=== PATIENT | female | born 1990 | race Caucasian/White ===

== ENCOUNTER 2017-03-17 23:11 | Emergency (ER) | payer OTHER ==
[~2017-03-17] VITALS: Ht 172.7 cm; Wt 108.9 kg
[2017-03-18] MEDS ORDERED: CRUTCH1 EACH MISC (00:31)
[2017-03-18] MEDS ORDERED: NORCO 5-325 TA1 EACH PO (00:31)
== END 2017-03-18 01:22 | disposition home or self-care (01) ==
LOC: ED 23:11
DX: S93.401A Sprain of unspecified ligament of right ankle, initial encounter (principal); J45.909 Unspecified asthma, uncomplicated; X50.1XXA Overexertion from prolonged static or awkward postures, initial encounter; Z88.8 Allergy status to other drugs, medicaments and biological substances
CPT/HCPCS: 73610; 99283

== ENCOUNTER 2021-06-20 00:02 | Inpatient (IN) | payer OTHER ==
[~2021-06-20 00:02] MED LIST: CRUTCH1 EACH MISC; NORCO 5-325 TA1 EACH PO
--- NOTE | 2021-06-20 12:56 | PR ---
[facility] [address] [place], [place] [address] Signed Progress Notes IP Datetime Report Generated by CPN: 06/20/2021 12:56 PROGRESS NOTES: [id number] Impression: Normal Progression of Labor Procedures: Artificial ROM; Intrauterine Pressure Catheter; Scalp Electrode; Sterile Vag Exam Plan: Continue Present Management Informed Consent Obtain: Vaginal Delivery VITAL SIGNS: [id number] Vital Signs: Reviewed; Within Normal Limits EXAM: [id number] Dilatation: 4.5 Effacement: 70 Station: -3 Contractions: Irregular and mild MEMBRANES: [id number] Comments: Pt seen and examined. Doing well. Pitocin was started per protocol to encourage descent and on exam head well applied. Discussed AROM and internal monitors and pt gives verbal consent. AROM easily performed for large amount of clear fluid. IUPC and FSE placed w/out difficulty. Adequate pelvis on exam and vertex well applied. Will continue low dose pit per protocol. Epidural on demand. Reviewed anticipated course of L_D. All questions answered. FETUS A: [id number] FHR Baseline: 120 Variability: Moderate 6-25bpm Accelerations: 15X15 Decelerations: None FHR Category: Category I Comments on Fetus A: No evidence of metabolic acidosis FETUS B: [id number] Signing Physician: Cristal Jordan DO Copies: ~ *Electronically Signed* 06/20/21 5622 CRISTAL JORDAN DO PATIENT NAME: ORTEGA DE LOS SANTOS PROGRESS NOTE DATE OF : 88 PHYSICIAN: CRISTAL JORDAN DO RPT #: [id number] REPORT IS CONFIDENTIAL AND NOT TO BE RELEASED WITHOUT AUTHORIZATION
--- NOTE | 2021-06-20 17:58 | PR ---
[facility] [address] [place], [place] [address] Signed Progress Notes IP Datetime Report Generated by CPN: 06/20/2021 17:58 PROGRESS NOTES: [id number] Impression: Reassuring Heart Rate Other Impressions: Slow progress; inadequate CTXs Procedures: Artificial ROM; Intrauterine Pressure Catheter; Scalp Electrode; Sterile Vag Exam Plan: Continue Present Management; Augmentation Informed Consent Obtain: Vaginal Delivery VITAL SIGNS: [id number] Vital Signs: Reviewed; Within Normal Limits EXAM: [id number] Dilatation: 5.0 Effacement: 70 Station: -3 Contractions: Irregular and mild MEMBRANES: [id number] Comments: Pt seen and examined. Doing well. Comfortable w/ epidural. Has had some symptomatic hypotensive episodes w/ N/V. Orders from anesthesia for IV fluids and ephedrine. See RN charting for details. Reviewed continued hypotension and discussed management. Excellent urine output, minimal symptoms, and Cat 1 tracing. Discussed risks of overtreating including hypervolemia. Pt reassurred. Will continue pitocin per protocol. Discussed minimal cervical change, station and EFW, and indications for if needed. Pt understands and agrees. FETUS A: [id number] FHR Baseline: 120 Variability: Moderate 6-25bpm Accelerations: 15X15 Decelerations: None FHR Category: Category I Comments on Fetus A: No evidence of metabolic acidosis FETUS B: [id number] Signing Physician: Cristal Jordan DO Copies: ~ *Electronically Signed* 06/20/21 7466 CRISTAL JORDAN DO PATIENT NAME: ORTEGA DE LOS SANTOS PROGRESS NOTE DATE OF : 88 PHYSICIAN: CRISTAL JORDAN #: [id number] REPORT IS CONFIDENTIAL AND NOT TO BE RELEASED WITHOUT AUTHORIZATION
--- NOTE | 2021-06-20 20:16 | PR ---
[facility] [address] [place], [place] [address] Signed Progress Notes IP Datetime Report Generated by CPN: 06/20/2021 20:16 PROGRESS NOTES: [id number] Impression: Normal Progression of Labor; Reassuring Heart Rate Other Impressions: Slow progress; inadequate CTXs Procedures: Sterile Vag Exam Plan: Continue Present Management; Anticipate Vaginal Delivery Informed Consent Obtain: Vaginal Delivery VITAL SIGNS: [id number] Vital Signs: Reviewed; Within Normal Limits EXAM: [id number] Dilatation: 5.0 Effacement: 70 Station: -3 Contractions: Irregular and mild MEMBRANES: [id number] Comments: Pt seen and examined. Doing well. Comfortable w/ epidural. Pitocin increased per protocol and approaching adequate. Significant cervical change noted now 7.5 / 80 and RADHA position noted. Adequate pelvis again appreciated. Continue augmentation of labor. Reviewed anticipated course of labor. All questions answered. FETUS A: [id number] FHR Baseline: 120 Variability: Moderate 6-25bpm Accelerations: 15X15 Decelerations: None FHR Category: Category I Comments on Fetus A: No evidence of metabolic acidosis FETUS B: [id number] Signing Physician: Cristal Jordan DO Copies: ~ *Electronically Signed* 06/20/212015 CRISTAL JORDAN DO PATIENT NAME: ORTEGA DE LOS SANTOS PROGRESS NOTE DATE OF : 88 PHYSICIAN: CRISTAL JORDAN DO RPT #: [id number] REPORT IS CONFIDENTIAL AND NOT TO BE RELEASED WITHOUT AUTHORIZATION
--- NOTE | 2021-06-20 23:26 | PR ---
[facility] [address] [place], [place] [address] Signed Progress Notes IP Datetime Report Generated by CPN: 06/20/2021 23:26 PROGRESS NOTES: [id number] Impression: Normal Progression of Labor; Reassuring Heart Rate Other Impressions: Slow progress; inadequate CTXs Procedures: Sterile Vag Exam Plan: Anticipate Vaginal Delivery Informed Consent Obtain: Vaginal Delivery VITAL SIGNS: [id number] Vital Signs: Reviewed; Within Normal Limits EXAM: [id number] Dilatation: 10.0 Effacement: 100 Station: 0 Contractions: Irregular and mild MEMBRANES: [id number] Comments: Pt seen and examined. Doing well. Comfortable w/ contractions. Complete +1 station. Discussed 2nd stage of labor and anticipated course of delivery. Will start active pushing. Reviewed adequate pelvis, EFW, and small risk of shoulder dystocia and maneuvers employed should distocia occur. Pt understands and agrees with plan for trial of vaginal delivery FETUS A: [id number] FHR Baseline: 120 Variability: Moderate 6-25bpm Accelerations: 15X15 Decelerations: None FHR Category: Category I Comments on Fetus A: No evidence of metabolic acidosis FETUS B: [id number] Signing Physician: Cristal Jordan DO Copies: ~ *Electronically Signed* 06/20/21 2328 CRISTAL JORDAN DO PATIENT NAME: ORTEGA DE LOS SANTOS PROGRESS NOTE DATE OF : 88 PHYSICIAN: CRISTAL JORDAN DO RPT #: [id number] REPORT IS CONFIDENTIAL AND NOT TO BE RELEASED WITHOUT AUTHORIZATION
--- NOTE | 2021-06-21 08:24 | PR ---
[facility] [address] [place], [place] [address] Signed PP Progress Notes Datetime Report Generated by CPN: 06/21/2021 08:24 SUBJECTIVE: [id number] Pain: Within Normal Limits Nausea/Vomiting: Denies Flatus: Yes Bowel Movement: No Vital Signs: [id number] Vital Signs: Reviewed; Within Normal Limits Cardiovascular: Normal Respiratory: Normal Abdomen/Uterus: Normal Lochia: Normal Vulva/Perineum: Not Done Breasts: Not Done CVA Tenderness: Normal Extremities: Normal Incision: Not Applicable Progress: Normal Exam Comments: Fundus firm U-2 nontender IMPRESSION/PLAN/PROCEDURES: [id number] Impression: Normal Progression Plan: Continue Present Management Progress Notes: Pt seen and examined. Doing well. Ambulating, and tolerating full diet. well. Pain and lochia minimal. No fevers chills or other concerns. Anticpate d/c home tomorrow. Hgb 9.6. Signing Physician: Cristal Jordan DO Copies: ~ *Electronically Signed* 06/21/21 0824 CRISTAL JORDAN DO PATIENT NAME: ORTEGA DE LOS SANTOS PROGRESS NOTE DATE OF : 88 PHYSICIAN: CRISTAL JORDAN DO RPT #: [id number] REPORT IS CONFIDENTIAL AND NOT TO BE RELEASED WITHOUT AUTHORIZATION
--- NOTE | 2021-06-22 07:43 | PR ---
[facility] [address] [place], [place] [address] Signed PP Progress Notes Datetime Report Generated by CPN: 06/22/2021 07:42 SUBJECTIVE: [id number] Pain: Within Normal Limits Nausea/Vomiting: Denies Flatus: Yes Bowel Movement: No Vital Signs: [id number] Vital Signs: Reviewed; Within Normal Limits Cardiovascular: Normal Respiratory: Normal Abdomen/Uterus: Normal Lochia: Normal Vulva/Perineum: Not Done Breasts: Not Done CVA Tenderness: Normal Extremities: Normal Incision: Not Applicable Progress: Normal Exam Comments: Fundus firm U-2 nontender IMPRESSION/PLAN/PROCEDURES: [id number] Impression: Normal Progression Plan: Discharge Progress Notes: Pt seen and examined. Doing well. Ambulating, voiding, and tolerating full diet. Pain and lochia minimal. well. No concerns. Desires d/c home. Reviewed d/c instructions in detail. All questions answered. Signing Physician: Cristal Jordan DO Copies: ~ *Electronically Signed* 06/22/21 0742 CRISTAL JORDAN DO PATIENT NAME: ORTEGA DE LOS SANTOS PROGRESS NOTE DATE OF : 88 PHYSICIAN: CRISTAL JORDAN DO RPT #: [id number] REPORT IS CONFIDENTIAL AND NOT TO BE RELEASED WITHOUT AUTHORIZATION
== END 2021-06-22 11:40 | disposition home or self-care (01) | DRG 807 ==
LOC: FBC 00:02
PROVIDERS: ADMIT Obstetrics & Gynecology; ATTEND Obstetrics & Gynecology
PROC: 10E0XZZ Delivery of Products of Conception, External Approach (ICD-10-PCS; principal; 2021-06-20)
PROC: 10H07YZ Insertion of Other Device into Products of Conception, Via Natural or Artificial Opening (ICD-10-PCS; 2021-06-20)
PROC: 0KQM0ZZ Repair Perineum Muscle, Open Approach (ICD-10-PCS; 2021-06-20)
PROC: 10907ZC Drainage of Amniotic Fluid, Therapeutic from Products of Conception, Via Natural or Artificial Opening (ICD-10-PCS; 2021-06-20)
PROC: 3E0P7VZ Introduction of Hormone into Female Reproductive, Via Natural or Artificial Opening (ICD-10-PCS; 2021-06-20)
DX: O99.824 Streptococcus B carrier state complicating childbirth (principal); Z37.0 Single live birth; Z87.891 Personal history of nicotine dependence; Z20.822 Contact with and (suspected) exposure to COVID-19; O70.1 Second degree perineal laceration during delivery; Z67.41 Type O blood, Rh negative
CPT/HCPCS: 01960; 85027; 86880; 86900; 86901; A9270; J2001; J2405; J2540; J2550; J2795; J7121; U0003